=== PATIENT | female | born 1940 | race African-American/Black ===

== ENCOUNTER 2020-11-11 15:26 | Inpatient (IN) ==
[2020-11-11 17:04] LABS: Basophils % 0.2 %; Eosinophils % 0.2 %; Hematocrit 34.1 % (35.3-44.9); Immature Granulocytes % 0.3 % (0-4); Lymphocytes # 1.2 K/mcL (0.6-4.6); Lymphocytes % 18.9 %; Mean Corpuscular HGB Conc 35.2 g/dL (31.6-35.5); Mean Corpuscular Hemoglobin 26.6 pg (28.0-33.3); Mean Corpuscular Volume 75.6 fL (83.0-100.0); Mean Platelet Volume 9.9 fL (9.4-12.4); Monocytes # 0.4 K/mcL (0.0-1.3); Monocytes % 6.7 %; Neutrophils # 4.8 K/mcL (1.6-8.9); Platelet Count 330 K/mcL (140-400); Red Blood Count 4.51 M/mcL (3.82-4.97); Red Cell Distribution Width 13.5 % (11.5-14.5); Segmented Neutrophils % 73.7 %; White Blood Count 6.5 K/mcL (4.3-11.1)
[2020-11-11 17:32] LABS: Albumin/Globulin Ratio 1.3 (1.1-2.2); Bilirubin,Direct 0.1 mg/dL (0.0-0.2); Bilirubin,Indirect 0.5 mg/dL (0.0-1.0); Bilirubin,Total 0.6 mg/dL (0.3-1.0); Calcium 9.7 mg/dL (8.6-10.3); Globulin 3.1 g/dL (2.4-3.5); Magnesium 2.3 mg/dL (1.6-2.6); Potassium 5.3 mEq/L (3.5-5.1); Total Protein 7.1 g/dL (6.4-8.9); Troponin I 0.09 ng/mL (< 0.04)
[2020-11-11 17:33] LABS: Thyroid Stimulating Hormone 1.739 mcIU/mL (0.340-5.600)
[2020-11-11] MEDS ORDERED: 0.9 % Sodium Chloride 1,000 ML IVC ONE (17:55)
[2020-11-11] MEDS ORDERED: cefTRIAXone 1,000 MG in Water for inj. (sterile) 10 ML IVP ONE (17:55)
[2020-11-11] MEDS ORDERED: Azithromycin 500 MG in D5% in Water 250 ML IVPB ONE (17:55)
[2020-11-11] MEDS ORDERED: Aspirin 325 MG TABLET PO ONE (17:55)
[2020-11-11] MEDS ORDERED: Milk and Molasses Enema 200 ML RC ONE (18:35)
[2020-11-11] MEDS ORDERED: Naloxone 0.4 MG/ML INJ IVP PRN (20:29)
[2020-11-11 23:08] LABS: Troponin I 0.07 ng/mL (< 0.04)
[2020-11-11] MEDS: 0.9 % Sodium Chloride 1,000 ML IVC SCH (23:19)
[2020-11-12 02:42] LABS: Basophils % 0.2 %; Eosinophils % 0.1 %; Hemoglobin 12.5 g/dL (11.5-15.4); Immature Granulocytes % 0.3 % (0-4); Lymphocytes # 0.9 K/mcL (0.6-4.6); Lymphocytes % 7.5 %; Mean Corpuscular HGB Conc 34.7 g/dL (31.6-35.5); Mean Corpuscular Hemoglobin 25.8 pg (28.0-33.3); Mean Corpuscular Volume 74.4 fL (83.0-100.0); Mean Platelet Volume 10.3 fL (9.4-12.4); Monocytes % 6.5 %; Neutrophils # 9.8 K/mcL (1.6-8.9); Platelet Count 349 K/mcL (140-400); Red Blood Count 4.84 M/mcL (3.82-4.97); Red Cell Distribution Width 13.6 % (11.5-14.5); Segmented Neutrophils % 85.4 %
[2020-11-12 02:49] LABS: Monocytes # 0.8 K/mcL (0.0-1.3); White Blood Count 11.5 K/mcL (4.3-11.1)
[2020-11-12 03:02] LABS: Albumin/Globulin Ratio 1.3 (1.1-2.2); Bilirubin,Total 0.7 mg/dL (0.3-1.0); Calcium 9.8 mg/dL (8.6-10.3); Globulin 3.1 g/dL (2.4-3.5); Potassium 6.2 mEq/L (3.5-5.1); Total Protein 7.1 g/dL (6.4-8.9)
[2020-11-12 03:31] LABS: Troponin I 0.06 ng/mL (< 0.04)
[2020-11-12] MEDS: *HR* Heparin 5,000 UNIT/ML VIAL SQ SCH ×2 (05:32→16:55)
[2020-11-12] MEDS: cefTRIAXone 1,000 MG in Water for inj. (sterile) 10 ML IVP SCH (09:10)
[2020-11-12] MEDS: 0.9 % Sodium Chloride 1,000 ML IVC SCH ×2 (11:52→23:59)
[2020-11-12 15:05] LABS: Potassium 5.5 mEq/L (3.5-5.1)
[2020-11-12] MEDS: Azithromycin 500 MG in 0.9 % Sodium Chloride 250 ML IVPB SCH (16:55)
[2020-11-12] MEDS: Sennosides/Docusate Sodium TABLET PO SCH (21:16)
[2020-11-13] MEDS: *HR* Heparin 5,000 UNIT/ML VIAL SQ SCH ×2 (04:54→17:05)
[2020-11-13 06:11] LABS: Basophils % 0.1 %; Eosinophils % 0.2 %; Hematocrit 33.2 % (35.3-44.9); Hemoglobin 11.7 g/dL (11.5-15.4); Immature Granulocytes % 0.2 % (0-4); Lymphocytes % 24.8 %; Mean Corpuscular HGB Conc 35.2 g/dL (31.6-35.5); Mean Corpuscular Hemoglobin 26.7 pg (28.0-33.3); Mean Corpuscular Volume 75.8 fL (83.0-100.0); Mean Platelet Volume 10.5 fL (9.4-12.4); Monocytes # 0.6 K/mcL (0.0-1.3); Monocytes % 7.3 %; Neutrophils # 5.5 K/mcL (1.6-8.9); Platelet Count 325 K/mcL (140-400); Red Blood Count 4.38 M/mcL (3.82-4.97); Red Cell Distribution Width 13.7 % (11.5-14.5); Segmented Neutrophils % 67.4 %; White Blood Count 8.2 K/mcL (4.3-11.1)
[2020-11-13 06:30] LABS: Calcium 8.9 mg/dL (8.6-10.3); Potassium 4.4 mEq/L (3.5-5.1)
[2020-11-13] MEDS ORDERED: Lidocaine -MPF 2% 2 ML VIAL ONE ×2 (07:11→09:15)
[2020-11-13] MEDS ORDERED: *HR* FentaNYL (PF) 100 MCG/2 ML VIAL ONE ×2 (07:11→09:15)
[2020-11-13] MEDS ORDERED: Ondansetron 4 MG/2 ML VIAL ONE ×2 (07:11→09:15)
[2020-11-13] MEDS ORDERED: *HR* Succinylcholine 200 MG/10 ML VIAL IVP ONE ×2 (07:11→09:15)
[2020-11-13] MEDS ORDERED: *HR* Propofol 200 MG/20 ML VIAL IVP ONE ×2 (07:11→09:15)
[2020-11-13] MEDS: cefTRIAXone 1,000 MG in Water for inj. (sterile) 10 ML IVP SCH (07:56)
[2020-11-13] MEDS: amLODIPine 5 MG TABLET PO SCH (07:56)
[2020-11-13] MEDS: Sennosides/Docusate Sodium TABLET PO SCH ×2 (07:56→21:27)
[2020-11-13] MEDS: 0.9 % Sodium Chloride 1,000 ML IVC SCH (07:57)
[2020-11-13] MEDS ORDERED: Lidocaine -MPF 4% 5 ML AMPUL ONE ×2 (09:13→09:15)
[2020-11-13 09:34] LABS: Adenovirus Not Detected (Not Detect); Bordetella Pertussis Not Detected (Not Detect); Chlamydophila pneumoniae Not Detected (Not Detect); Coronavirus 229E Not Detected (Not Detect); Coronavirus HKU1 Not Detected (Not Detect); Coronavirus NL63 Not Detected (Not Detect); Coronavirus OC43 Not Detected (Not Detect); Human Metapneumovirus Not Detected (Not Detect); Human Rhinovirus/Enterovirus Not Detected (Not Detect); Influenza A Subtype 2009 H1 Not Detected (Not Detect); Influenza B Not Detected (Not Detect); Mycoplasma pneumoniae Not Detected (Not Detect); Parainfluenza Virus 1 Not Detected (Not Detect); Parainfluenza Virus 2 Not Detected (Not Detect); Parainfluenza Virus 3 Not Detected (Not Detect); Parainfluenza Virus 4 Not Detected (Not Detect); Respiratory Syncytial Virus Not Detected (Not Detect); SARS-CoV-2 Not Detected (Not Detect)
[2020-11-13] MEDS ORDERED: *HR* OxyCODONE Immed Rel 5 MG TABLET PO PRN (10:14)
[2020-11-13] MEDS ORDERED: Ondansetron 4 MG/2 ML VIAL IVP PRN (10:14)
[2020-11-13] MEDS ORDERED: *HR* HYDROmorphone PF 0.5 MG/0.5 ML SYRINGE IVP PRN (10:14)
[2020-11-13] MEDS ORDERED: Promethazine 6.25 MG in Water for inj. (sterile) 20 ML IVPB PRN (10:14)
[2020-11-13 14:39] LABS: Source of Body Fluid lt upper lobe bal
[2020-11-13 14:43] LABS: Source of Body Fluid lt lower lobe bal
[2020-11-13 16:01] LABS: Appearance of Body Fluid Hazy (Clear); Volume of Body Fluid 14 mL
[2020-11-13] MEDS: Azithromycin 500 MG in 0.9 % Sodium Chloride 250 ML IVPB SCH (17:05)
[2020-11-13 17:52] LABS: Appearance of Body Fluid Hazy (Clear); Volume of Body Fluid 18 mL
[2020-11-14 02:53] LABS: Hematocrit 28.3 % (35.3-44.9); Immature Granulocytes % 0.5 % (0-4); Lymphocytes # 1.5 K/mcL (0.6-4.6); Mean Corpuscular HGB Conc 33.9 g/dL (31.6-35.5); Mean Corpuscular Hemoglobin 25.7 pg (28.0-33.3); Mean Corpuscular Volume 75.9 fL (83.0-100.0); Mean Platelet Volume 11.1 fL (9.4-12.4); Monocytes # 0.5 K/mcL (0.0-1.3); Neutrophils # 5.8 K/mcL (1.6-8.9); Platelet Count 301 K/mcL (140-400); Red Blood Count 3.73 M/mcL (3.82-4.97); Red Cell Distribution Width 13.9 % (11.5-14.5); Segmented Neutrophils % 74.5 %; White Blood Count 7.8 K/mcL (4.3-11.1)
[2020-11-14 02:54] LABS: Hemoglobin 9.6 g/dL (11.5-15.4)
[2020-11-14 03:06] LABS: Calcium 8.8 mg/dL (8.6-10.3); Potassium 5.2 mEq/L (3.5-5.1)
[2020-11-14] MEDS: *HR* Heparin 5,000 UNIT/ML VIAL SQ SCH (06:11)
[2020-11-14] MEDS: Sennosides/Docusate Sodium TABLET PO SCH (07:27)
[2020-11-14] MEDS: cefTRIAXone 1,000 MG in Water for inj. (sterile) 10 ML IVP SCH (07:27)
[2020-11-14] MEDS: amLODIPine 5 MG TABLET PO SCH (07:30)
[2020-11-14 11:10] LABS: % Iron Saturation 67 % (15-50); Iron 133 mcg/dL (50-170); Transferrin 142 mg/dL (203-362)
[2020-11-14 11:28] LABS: Ferritin 295 ng/mL (10-120)
[2020-11-14 11:34] LABS: Folate 20.8 ng/mL (3.0-16.0)
[2020-11-14 11:57] VITALS: BP 100/55
[2020-11-15 15:57] LABS: A.galactomannan Ag Index 0.47
[2020-11-15 18:26] LABS: ANA IgG by ELISA NONE DETECTED (None Detected)
[2020-11-15 18:29] LABS: QuantiFERON Mitogen minus NIL >10.00 IU/mL
[2020-11-15 18:33] LABS: Serine Protease-3 Antibody 0 AU/mL (0-19)
[2020-11-15 19:13] LABS: QuantiFERON NIL 0.09 IU/mL; QuantiFERON-TB Gold In-Tube POSITIVE (Negative)
[2020-11-16 05:50] LABS: Influenza A PCR Body Fluid NOT DETECTED; Influenza B PCR Body Fluid NOT DETECTED
[2020-11-16 06:24] LABS: Aspergillus Ab by CF <1:8 (<1:8); Coccidioides Ab by CF <1:2 (<1:2)
[2020-11-16 06:31] LABS: RSV PCR Body Fluid NOT DETECTED; RVP Body Fluid Source NOT PROVIDED
[2020-11-16 14:38] LABS: Influenza A PCR Body Fluid NOT DETECTED; Influenza B PCR Body Fluid NOT DETECTED; RVP Body Fluid Source BAL
[2020-11-16 15:13] LABS: RSV PCR Body Fluid NOT DETECTED
[2020-11-17 01:05] LABS: HSV Source BAL
[2020-11-18 16:03] LABS: HSV Source BAL
[2020-11-21 00:26] LABS: BronchAsperGalactomannan Index 0.06; BronchAsperGalactomannan Index 0.07
== END 2020-11-14 17:22 | disposition home or self-care (01) | DRG 682 ==
LOC: EMEROOARM 15:26 → 2ANU 15:26 → SUATTDRO 11-13 16:39
PROVIDERS: ADMIT Internal Medicine; ATTEND Internal Medicine

== ENCOUNTER 2020-12-17 19:21 | Observation (INO) ==
[2020-12-17 21:36] LABS: Basophils % 0.4 %; Eosinophils % 0.6 %; Hematocrit 28.5 % (35.3-44.9); Hemoglobin 9.8 g/dL (11.5-15.4); Immature Granulocytes % 0.2 % (0-4); Lymphocytes # 1.9 K/mcL (0.6-4.6); Lymphocytes % 35.3 %; Mean Corpuscular HGB Conc 34.4 g/dL (31.6-35.5); Mean Corpuscular Hemoglobin 26.6 pg (28.0-33.3); Mean Corpuscular Volume 77.2 fL (83.0-100.0); Mean Platelet Volume 10.4 fL (9.4-12.4); Monocytes # 0.4 K/mcL (0.0-1.3); Monocytes % 6.9 %; Platelet Count 282 K/mcL (140-400); Red Blood Count 3.69 M/mcL (3.82-4.97); Red Cell Distribution Width 14.7 % (11.5-14.5); Segmented Neutrophils % 56.6 %; White Blood Count 5.4 K/mcL (4.3-11.1)
[2020-12-17 21:58] LABS: Albumin 3.5 g/dL (3.5-5.7); Albumin/Globulin Ratio 1.5 (1.1-2.2); Bilirubin,Total 0.5 mg/dL (0.3-1.0); Calcium 9.5 mg/dL (8.6-10.3); Globulin 2.4 g/dL (2.4-3.5); Potassium 4.6 mEq/L (3.5-5.1); Total Protein 5.9 g/dL (6.4-8.9)
[2020-12-17 22:01] LABS: Troponin I 0.06 ng/mL (< 0.04)
[2020-12-17] MEDS ORDERED: 0.9 % Sodium Chloride 1,000 ML IVC ONE (22:08)
[2020-12-17] MEDS ORDERED: Naloxone 0.4 MG/ML INJ IVP PRN (23:10)
[2020-12-18] MEDS: 0.9 % Sodium Chloride 1,000 ML IVC SCH ×2 (01:40→16:22)
[2020-12-18 02:33] LABS: Calcium 9.1 mg/dL (8.6-10.3)
[2020-12-18] MEDS ORDERED: *HR* Heparin 5,000 UNIT/ML VIAL SQ SCH (06:00)
[2020-12-19 03:14] LABS: Basophils % 0.4 %; Eosinophils # 0.1 K/mcL (0.0-0.6); Eosinophils % 2.8 %; Hematocrit 27.4 % (35.3-44.9); Hemoglobin 9.4 g/dL (11.5-15.4); Immature Granulocytes % 0.2 % (0-4); Lymphocytes # 2.9 K/mcL (0.6-4.6); Lymphocytes % 57.8 %; Mean Corpuscular HGB Conc 34.3 g/dL (31.6-35.5); Mean Corpuscular Hemoglobin 26.3 pg (28.0-33.3); Mean Corpuscular Volume 76.8 fL (83.0-100.0); Mean Platelet Volume 10.4 fL (9.4-12.4); Monocytes # 0.4 K/mcL (0.0-1.3); Monocytes % 8.4 %; Neutrophils # 1.5 K/mcL (1.6-8.9); Platelet Count 270 K/mcL (140-400); Red Blood Count 3.57 M/mcL (3.82-4.97); Red Cell Distribution Width 14.6 % (11.5-14.5); Segmented Neutrophils % 30.4 %
[2020-12-19 03:35] LABS: Calcium 8.7 mg/dL (8.6-10.3); Potassium 4.4 mEq/L (3.5-5.1)
[2020-12-19] MEDS ORDERED: 0.9 % Sodium Chloride 1,000 ML IVC SCH (10:30)
[2020-12-20 01:04] LABS: Calcium 8.2 mg/dL (8.6-10.3); Potassium 4.1 mEq/L (3.5-5.1)
[2020-12-21 06:01] LABS: Calcium 8.7 mg/dL (8.6-10.3); Potassium 4.1 mEq/L (3.5-5.1)
[2020-12-21 12:04] VITALS: BP 112/63
== END 2020-12-21 13:49 | disposition home health service (06) ==
LOC: EMEROOARM 19:21 → 2ANU 19:21 → SUATTDRO 22:41 → 2ANU 23:35
PROVIDERS: ADMIT Internal Medicine; ATTEND General Practice

== ENCOUNTER 2021-04-19 20:14 | Inpatient (IN) ==
[2021-04-19 22:46] LABS: Basophils % 0.5 %; Eosinophils % 0.5 %; Hematocrit 31.9 % (35.3-44.9); Hemoglobin 11.3 g/dL (11.5-15.4); Immature Granulocytes % 0.4 % (0-4); Lymphocytes # 1.6 K/mcL (0.6-4.6); Lymphocytes % 28.4 %; Mean Corpuscular HGB Conc 35.4 g/dL (31.6-35.5); Mean Corpuscular Hemoglobin 26.5 pg (28.0-33.3); Mean Corpuscular Volume 74.7 fL (83.0-100.0); Mean Platelet Volume 10.1 fL (9.4-12.4); Monocytes # 0.5 K/mcL (0.0-1.3); Monocytes % 8.5 %; Neutrophils # 3.5 K/mcL (1.6-8.9); Platelet Count 384 K/mcL (140-400); Red Blood Count 4.27 M/mcL (3.82-4.97); Red Cell Distribution Width 15.4 % (11.5-14.5); Segmented Neutrophils % 61.7 %; White Blood Count 5.7 K/mcL (4.3-11.1)
[2021-04-19] MEDS ORDERED: Morphine Sulfate 2 MG/ML SYRINGE IVP ONE (22:51)
[2021-04-19 22:57] LABS: INR 1.1; Prothrombin Time 12.2 Seconds (9.4-12.1)
[2021-04-19 22:59] LABS: Activated Partial Thrombo Time 25.8 Seconds (26.0-36.0)
[2021-04-19 23:06] LABS: Calcium 9.4 mg/dL (8.6-10.3); Potassium 4.3 mEq/L (3.5-5.1)
[2021-04-19] MEDS ORDERED: Ketorolac 30 MG/ML VIAL IVP PRN (23:58)
[2021-04-19] MEDS ORDERED: Naloxone 0.4 MG/ML INJ IVP PRN (23:58)
[2021-04-19] MEDS ORDERED: *HR* Promethazine 25 MG/ML VIAL IM PRN (23:58)
[2021-04-19] MEDS ORDERED: Melatonin 3 MG TABLET PO PRN (23:58)
[2021-04-19] MEDS ORDERED: Ondansetron 4 MG/2 ML VIAL IVP PRN (23:58)
[2021-04-20] MEDS ORDERED: Ketorolac 30 MG/ML VIAL IVP PRN (16:37)
[2021-04-20] MEDS ORDERED: Mirtazapine 15 MG TABLET PO SCH (21:00)
[2021-04-20] MEDS ORDERED: *HR* FentaNYL (PF) 100 MCG/2 ML VIAL ONE (21:33)
[2021-04-20] MEDS ORDERED: Lidocaine -MPF 2% 2 ML VIAL ONE (21:33)
[2021-04-20] MEDS ORDERED: *HR* Etomidate 40 MG/20 ML VIAL IVP ONE (21:33)
[2021-04-20] MEDS ORDERED: *HR* Propofol 200 MG/20 ML VIAL IVP ONE (21:33)
[2021-04-20] MEDS ORDERED: Acetaminophen IV 1,000 MG/100 ML BAG IVPB ONE (22:08)
[2021-04-20] MEDS ORDERED: *HR* HYDROmorphone 2 MG TABLET PO PRN (22:40)
[2021-04-20] MEDS ORDERED: Promethazine 6.25 MG in Water for inj. (sterile) 20 ML IVPB PRN (22:40)
[2021-04-20] MEDS ORDERED: *HR* Labetalol 20 MG/4 ML SYRINGE IVP PRN (22:40)
[2021-04-20] MEDS ORDERED: *HR* OxyCODONE Immed Rel 5 MG TABLET PO PRN (22:40)
[2021-04-20] MEDS: *HR* HYDROmorphone (PF) 1 MG/ML SYRINGE IVP PRN ×2 (23:17→23:25)
[2021-04-21] MEDS ORDERED: *HR* Labetalol 20 MG/4 ML SYRINGE IVP PRN (00:34)
[2021-04-21] MEDS ORDERED: *HR* HYDROmorphone (PF) 1 MG/ML SYRINGE IVP PRN (00:34)
[2021-04-21] MEDS ORDERED: Melatonin 3 MG TABLET PO PRN (00:34)
[2021-04-21] MEDS ORDERED: *HR* Promethazine 25 MG/ML VIAL IM PRN (00:34)
[2021-04-21] MEDS ORDERED: Naloxone 0.4 MG/ML INJ IVP PRN (00:34)
[2021-04-21] MEDS ORDERED: Promethazine 6.25 MG in Water for inj. (sterile) 20 ML IVPB PRN (00:34)
[2021-04-21] MEDS ORDERED: *HR* OxyCODONE Immed Rel 5 MG TABLET PO PRN (00:34)
[2021-04-21] MEDS ORDERED: Ondansetron 4 MG/2 ML VIAL IVP PRN (00:34)
[2021-04-21] MEDS ORDERED: Ketorolac 30 MG/ML VIAL IVP PRN (00:34)
[2021-04-21] MEDS ORDERED: *HR* HYDROmorphone 2 MG TABLET PO PRN (00:34)
[2021-04-21] MEDS ORDERED: CeFAZolin 2,000 MG/120 ML BAG IVPB SCH (01:00)
[2021-04-21] MEDS: CeFAZolin 2 GM/120 ML BAG IVPB SCH ×2 (02:13→09:11)
[2021-04-21 04:22] LABS: Hematocrit 27.6 % (35.3-44.9); Mean Corpuscular HGB Conc 34.4 g/dL (31.6-35.5); Mean Corpuscular Volume 75.4 fL (83.0-100.0); Mean Platelet Volume 10.7 fL (9.4-12.4); Platelet Count 350 K/mcL (140-400); Red Blood Count 3.66 M/mcL (3.82-4.97); Red Cell Distribution Width 15.4 % (11.5-14.5); White Blood Count 6.8 K/mcL (4.3-11.1)
[2021-04-21 04:23] LABS: Hemoglobin 9.5 g/dL (11.5-15.4)
[2021-04-21 04:41] LABS: Calcium 8.5 mg/dL (8.6-10.3); Potassium 4.5 mEq/L (3.5-5.1)
[2021-04-21] MEDS: *HR* Enoxaparin 40 MG/0.4 ML SYRINGE SQ SCH (05:08)
[2021-04-21] MEDS ORDERED: *HR* Enoxaparin 40 MG/0.4 ML SYRINGE SQ SCH (06:00)
[2021-04-21] MEDS: Aspirin Enteric Coated 325 MG Tablet PO SCH (09:12)
[2021-04-21] MEDS: Morphine Sulfate 2 MG/ML SYRINGE IVP PRN ×2 (14:00→20:15)
[2021-04-21] MEDS: Mirtazapine 15 MG TABLET PO SCH (20:14)
[2021-04-22 05:31] LABS: Basophils % 0.2 %; Immature Granulocytes % 0.3 % (0-4)
[2021-04-22 05:33] LABS: Eosinophils # 0.1 K/mcL (0.0-0.6); Eosinophils % 1.6 %; Hematocrit 23.8 % (35.3-44.9); Hemoglobin 8.1 g/dL (11.5-15.4); Immature Platelets 7.2 % (1.1-6.1); Lymphocytes # 1.6 K/mcL (0.6-4.6); Mean Corpuscular Volume 76.3 fL (83.0-100.0); Mean Platelet Volume 11.4 fL (9.4-12.4); Monocytes # 0.6 K/mcL (0.0-1.3); Monocytes % 10.9 %; Neutrophils # 3.4 K/mcL (1.6-8.9); Platelet Count 292 K/mcL (140-400); Red Blood Count 3.12 M/mcL (3.82-4.97); Red Cell Distribution Width 15.5 % (11.5-14.5); White Blood Count 5.8 K/mcL (4.3-11.1)
[2021-04-22 05:41] LABS: INR 1.2; Prothrombin Time 13.7 Seconds (9.4-12.1)
[2021-04-22] MEDS: *HR* Enoxaparin 40 MG/0.4 ML SYRINGE SQ SCH (06:08)
[2021-04-22 07:48] LABS: Albumin 2.5 g/dL (3.5-5.7); Albumin/Globulin Ratio 1.1 (1.1-2.2); Bilirubin,Direct 0.1 mg/dL (0.0-0.2); Bilirubin,Indirect 0.3 mg/dL (0.0-1.0); Bilirubin,Total 0.4 mg/dL (0.3-1.0); Calcium 8.4 mg/dL (8.6-10.3); Globulin 2.3 g/dL (2.4-3.5); Magnesium 1.8 mg/dL (1.6-2.6); Potassium 5.2 mEq/L (3.5-5.1); Total Protein 4.8 g/dL (6.4-8.9)
[2021-04-22] MEDS: Aspirin Enteric Coated 325 MG Tablet PO SCH (10:18)
[2021-04-22 13:11] LABS: RBC,Pleural Fluid < 2000 RBC/mcL
[2021-04-22 13:15] LABS: Appearance of Pleural Fl Clear (Clear)
[2021-04-22 13:21] LABS: Total Protein,Pleural Fluid 2.4 g/dL
[2021-04-22] MEDS: Morphine Sulfate 2 MG/ML SYRINGE IVP PRN (13:35)
[2021-04-22 13:37] LABS: Basophils,Pleural Fluid 0 %; Eosinophils,Pleural Fluid 0 %
[2021-04-22] MEDS: Mirtazapine 15 MG TABLET PO SCH (21:52)
[2021-04-23 02:34] LABS: Basophils % 0.2 %; Eosinophils # 0.1 K/mcL (0.0-0.6); Eosinophils % 1.7 %; Hematocrit 21.6 % (35.3-44.9); Hemoglobin 7.8 g/dL (11.5-15.4); Immature Granulocytes % 0.2 % (0-4); Lymphocytes # 1.3 K/mcL (0.6-4.6); Mean Corpuscular HGB Conc 36.1 g/dL (31.6-35.5); Mean Corpuscular Hemoglobin 26.5 pg (28.0-33.3); Mean Corpuscular Volume 73.5 fL (83.0-100.0); Mean Platelet Volume 10.3 fL (9.4-12.4); Monocytes # 0.5 K/mcL (0.0-1.3); Monocytes % 10.4 %; Neutrophils # 2.9 K/mcL (1.6-8.9); Platelet Count 308 K/mcL (140-400); Red Blood Count 2.94 M/mcL (3.82-4.97); Red Cell Distribution Width 15.2 % (11.5-14.5); Segmented Neutrophils % 60.5 %; White Blood Count 4.8 K/mcL (4.3-11.1)
[2021-04-23 02:48] LABS: Calcium 8.3 mg/dL (8.6-10.3); Magnesium 1.7 mg/dL (1.6-2.6); Potassium 4.3 mEq/L (3.5-5.1)
[2021-04-23 02:52] LABS: Iron 16 mcg/dL (50-170)
[2021-04-23 03:06] LABS: Ferritin 514 ng/mL (10-120)
[2021-04-23 03:11] LABS: Folate 3.6 ng/mL (3.0-16.0)
[2021-04-23 03:20] LABS: % Iron Saturation 11 % (15-50); Transferrin 103 mg/dL (203-362)
[2021-04-23] MEDS ORDERED: *HR* Enoxaparin 30 MG/0.3 ML SYRINGE SQ SCH (06:00)
[2021-04-23 07:32] VITALS: BP 122/72
[2021-04-23] MEDS: Aspirin Enteric Coated 325 MG Tablet PO SCH ×2 (08:34→09:13)
== END 2021-04-23 10:36 | DRG 480 ==
LOC: EMEROOARM 20:14 → 3ANU 20:14 → SUATTDRO 04-20 00:38 → 3ANU 04-20 01:10 → SUATTDRO 04-20 16:44 → 3BNU 04-22 21:43
PROVIDERS: ADMIT Family Medicine; ATTEND Pharmacist